=== PATIENT | female | born 1940 | race Caucasian/White ===

== ENCOUNTER 2024-05-22 18:57 | Emergency (ER) | payer MEDICARE, SELFPAY ==
[2024-05-22 19:16] VITALS: BP 134/64; PULSE 62; RESP 17; TEMP 36.3; O2SAT 99; BMI 21.4
--- NOTE | 2024-05-22 19:46 | DI.CT.S_ITS ---
PROCEDURE: CT ABDOMEN PELVIS W CON INDICATIONS: Eval for incarcerated inguinal hernia TECHNIQUE: After the administration of intravenous contrast, axial sections acquired from the lung bases to the pubic symphysis. Coronal and sagittal reformats were performed. For radiation dose reduction, the following was used: automated exposure control, adjustment of mA and/or kV according to patient size. COMPARISON: [facility], CT, CT HIP LEFT WITHOUT CONTRAST, 12/24/2023, 11:14. FINDINGS: Image quality: Diagnostic. Lower Chest: Prominent heart size. No pleural effusion. ABDOMEN: Liver: No solid mass. Gallbladder: Distended. Multiple small layering gallstones. Biliary ducts: No biliary dilation. Pancreas: No ductal dilation. Spleen: Size is within normal limits. Adrenal Glands: No adrenal nodules. Kidneys and Ureters: No convincing hydronephrosis. Left peripelvic cysts. No solid mass. No complex renal cystic lesion which requires follow up. Stomach and Bowel: The appendix is not identified. No diverticulitis. No small bowel obstruction. The stomach is within normal limits. Peritoneum: No ascites. No pneumoperitoneum. Ventral Wall: No significant ventral hernia. Abdominal Nodes: No retroperitoneal or mesenteric adenopathy by size criteria. Vessels: Aorta and inferior vena cava are normal in size. PELVIS: Pelvic Organs: Unremarkable. Bladder: No bladder wall thickening, accounting for underdistention. Pelvic Nodes: No enlarged lymph nodes. Miscellaneous: Small left inguinal hernia containing a small amount free fluid. However, this appears similar to November 2023. Tiny fat containing left inguinal hernia. Bones: No aggressive osseous abnormality. Multilevel DDD. Minimal height loss at T12. Left hip arthroplasty. IMPRESSION: 1. No small bowel obstruction. The appendix is not identified. No pneumoperitoneum. 2. Small inguinal hernias. The right inguinal hernia contains HC trace amount of free fluid. However, this appears similar to November 2023. 3. Gallbladder is distended. Multiple layering gallstones. No pericholecystic fluid is seen. Dictated by: Loco Dickinson M.D. on 05/22/2024 at 22:01 Approved by: Loco Dickinson M.D. on 05/22/2024 at 22:12
[2024-05-22 20:20] VITALS: BP 133/62; PULSE 59; O2SAT 99
[2024-05-22 20:20] LABS: Add Manual Diff / Slide Review NO; Basophils Absolute Auto 100 /uL (0-100); Basophils Percent Auto 0.9 % (0-2); Eosinophils Absolute Auto 400 /uL (0-450); Eosinophils Percent Auto 6.1 % (2-4); Hematocrit 36.9 % (36-46); Hemoglobin 12.3 g/dL (12.0-16.0); Lymphocytes Absolute Auto 1600 /uL (1100-4500); Lymphocytes Percent Auto 23.5 % (25-40); Mean Corpuscular HGB Conc 33.4 % (30-36); Mean Corpuscular Hemoglobin 32.6 PG (26-34); Mean Corpuscular Volume 97.6 fL (80-100); Monocytes Absolute Auto 700 /uL (0-900); Monocytes Percent Auto 10.1 % (3-14); Neutrophils Absolute Auto 4200 /uL (1500-7000); Neutrophils Percent Auto 59.4 % (50-75); Platelet Count 211 X10^3/uL (150-400); Red Blood Cell Count 3.79 X10^6/uL (4.0-5.2); Red Cell Distribution Width 14.1 % (11.6-14.8)
[2024-05-22 20:31] LABS: Alanine Aminotransferase 35 IU/L (<35); Albumin 4.1 g/dL (3.5-5.0); Albumin Globulin Ratio 1.5 (1.0-2.8); Alkaline Phosphatase 83 U/L (38-126); Aspartate Aminotransferase 43 IU/L (14-36); BUN Creatinine Ratio 42.9 (6-22); Bilirubin Total 0.3 mg/dL (0.2-1.3); Blood Urea Nitrogen 24 mg/dL (7-17); Carbon Dioxide 25 mmol/L (22-32); Chloride 108 mmol/L (98-107); Estimated Glomerular Filt Rate > 60 mL/min (>60); Globulin 2.8 g/dL (1.7-4.1); Glucose 89 mg/dL (80-110); HEMOLYSIS 39 (0-50); Lipase 88 U/L (23-300); Potassium 4.3 mmol/L (3.4-5.1); Sodium 137 mmol/L (137-145); Total Protein 6.9 g/dL (6.3-8.2)
--- NOTE | 2024-05-22 23:20 | ED.GENADULT ---
HPI - General Adult General Chief complaint: Urogenital-Female Stated complaint: sent by [facility] for hernia Time Seen by Provider: 05/22/24 20:56 Source: patient Mode of arrival: Ambulatory History of Present Illness HPI narrative: Patient was an 83-year-old female who was sent from the walk-in clinic for evaluation of discomfort in her right lower inguinal region. She has had occasional lumps in this area that have come and gone however over the past couple days lump has developed that has been painful and difficult to push back. At the time of my evaluation she states that she was actually feeling much better. She denies any upper abdominal pain. No vomiting. No change in bowel habits. No urinary symptoms. No fevers. Related Data Home Medications Medication Instructions Recorded Confirmed No Known Home Medications 05/22/24 05/22/24 Allergies Allergy/AdvReac Type Severity Reaction Status Date / Time lidocaine Allergy Anaphylaxis Verified 05/22/24 19:16 Review of Systems Review of Systems Narrative: See HPI Patient History Social History Smoking Status: Never smoker Smoking Status: Never smoker Exam Initial Vital Signs Initial Vital Signs: Vital Signs Temperature 97.4 F L 05/22/24 19:16 Pulse Rate 62 05/22/24 19:16 Respiratory Rate 17 05/22/24 19:16 Blood Pressure 134/64 05/22/24 19:16 Pulse Oximetry 99 05/22/24 19:16 Oxygen Delivery Method Room Air 05/22/24 19:16 Const General: cooperative and comfortable HENMT Head: normal to inspection GI Inspection: normal to inspection and non-distended Palpation: soft, No firm, No guarding, No rigid and tender (Mild tenderness right inguinal region) Other: Patient was no right upper quadrant tenderness. Neuro General: patient alert and patient awake Course Orders Ordered: ED Orders 05/22/24 19:46 CT abdomen pelvis w con Stat 05/22/24 20:11 Complete Blood Count AUTO DIFF Stat Comprehensive Metabolic Panel Stat Lipase Stat Vital Signs Vital signs: Vital Signs - 8 hr 05/22/24 23:35 Temperature 97.7 F Pulse Rate 61 Respiratory Rate 15 Blood Pressure 115/65 Pulse Oximetry 98 Oxygen Delivery Method Room Air Medical Decision Making Lab Data Lab results reviewed: Yes I reviewed the patient's lab results. 05/22/24 20:11 05/22/24 20:11 Labs: Lab Results 05/22/24 Range/Units 20:11 WBC 7.0 (4.5-11.0) X10^3/uL RBC 3.79 L (4.0-5.2) X10^6/uL Hgb 12.3 (12.0-16.0) g/dL Hct 36.9 (36-46) % MCV 97.6 (80-100) fL MCH 32.6 (26-34) PG MCHC 33.4 (30-36) % RDW 14.1 (11.6-14.8) % Plt Count 211 (150-400) X10^3/uL Neut % (Auto) 59.4 (50-75) % Lymph % (Auto) 23.5 L (25-40) % [place] % (Auto) 10.1 (3-14) % Eos % (Auto) 6.1 H (2-4) % Baso % (Auto) 0.9 (0-2) % Neut # (Auto) 4200 (2303-2850) /uL Lymph # (Auto) 1600 (9380-8991) /uL [place] # (Auto) 700 (0-900) /uL Eos # (Auto) 400 (0-450) /uL Baso # (Auto) 100 (0-100) /uL Sodium 137 (137-145) mmol/L Potassium 4.3 (3.4-5.1) mmol/L Chloride 108 H (98-107) mmol/L Carbon Dioxide 25 (22-32) mmol/L BUN 24 H (7-17) mg/dL Creatinine 0.56 (0.52-1.04) mg/dL Estimated GFR > 60 (>60) mL/min BUN/Creatinine Ratio 42.9 H (6-22) Glucose 89 (80-110) mg/dL Calcium 9.0 (8.4-10.2) mg/dL Total Bilirubin 0.3 (0.2-1.3) mg/dL AST 43 H (14-36) IU/L ALT 35 H (<35) IU/L Alkaline Phosphatase 83 (38-126) U/L Total Protein 6.9 (6.3-8.2) g/dL Albumin 4.1 (3.5-5.0) g/dL Globulin 2.8 (1.7-4.1) g/dL Albumin/Globulin Ratio 1.5 (1.0-2.8) Lipase 88 (23-300) U/L Imaging Data CT scan - abdomen/pelvis: Radiologist's Impression: PROCEDURE: CT ABDOMEN PELVIS W CON INDICATIONS: Eval for incarcerated inguinal hernia TECHNIQUE: After the administration of intravenous contrast, axial sections acquired from the lung bases to the pubic symphysis. Coronal and sagittal reformats were performed. For radiation dose reduction, the following was used: automated exposure control, adjustment of mA and/or kV according to patient size. COMPARISON: [facility], CT, CT HIP LEFT WITHOUT CONTRAST, 12/24/2023, 11:14. FINDINGS: Image quality: Diagnostic. Lower Chest: Prominent heart size. No pleural effusion. ABDOMEN: Liver: No solid mass. Gallbladder: Distended. Multiple small layering gallstones. Biliary ducts: No biliary dilation. Pancreas: No ductal dilation. Spleen: Size is within normal limits. Adrenal Glands: No adrenal nodules. Kidneys and Ureters: No convincing hydronephrosis. Left peripelvic cysts. No solid mass. No complex renal cystic lesion which requires follow up. Stomach and Bowel: The appendix is not identified. No diverticulitis. No small bowel obstruction. The stomach is within normal limits. Peritoneum: No ascites. No pneumoperitoneum. Ventral Wall: No significant ventral hernia. Abdominal Nodes: No retroperitoneal or mesenteric adenopathy by size criteria. Vessels: Aorta and inferior vena cava are normal in size. PELVIS: Pelvic Organs: Unremarkable. Bladder: No bladder wall thickening, accounting for underdistention. Pelvic Nodes: No enlarged lymph nodes. Miscellaneous: Small left inguinal hernia containing a small amount free fluid. However, this appears similar to November 2023. Tiny fat containing left inguinal hernia. Bones: No aggressive osseous abnormality. Multilevel DDD. Minimal height loss at T12. Left hip arthroplasty. IMPRESSION: 1. No small bowel obstruction. The appendix is not identified. No pneumoperitoneum. 2. Small inguinal hernias. The right inguinal hernia contains HC trace amount of free fluid. However, this appears similar to November 2023. 3. Gallbladder is distended. Multiple layering gallstones. No pericholecystic fluid is seen. MDM Narrative Medical decision making narrative: Patient has bilateral inguinal hernias which is consistent with her presenting symptoms. No signs of bowel obstruction. She reports that her symptoms have actually improved since arrival. She does have gallstones and distended gallbladder noted on the CT scan her she was no right upper quadrant tenderness. There was no indication for emergent surgical consultation. I did discuss this with her. I do recommend that she follow-up with general surgery as an outpatient to discuss surgical repair. Patient was given return precautions and follow-up instructions. She expressed understanding and agreement with plan. Discharge Plan Departure Patient Disposition: Home Clinical Impression: Inguinal hernia, Cholelithiasis Instructions: Groin Hernia -- Adult Activity Restrictions/Additional Instructions: I do recommend that you contact the general surgeon with the number provided below for a follow-up. Return to the emergency department for new or worsening symptoms. Prescriptions: No Action No Known Home Medications Referrals: Floyd Fuentes MD [Physician] - Miscellaneous,MD Anibal [Primary Care Provider] - Stand Alone Forms: Patient Portal/API/Survey
[2024-05-22 23:35] VITALS: BP 115/65; PULSE 61; RESP 15; TEMP 36.5; O2SAT 98
== END 2024-05-22 23:40 | disposition home or self-care (01) ==
PROVIDERS: Emergency Provider Emergency Medicine
DX: K40.20 Bilateral inguinal hernia, without obstruction or gangrene, not specified as recurrent (principal); K80.20 Calculus of gallbladder without cholecystitis without obstruction
CPT/HCPCS: 36415; 74177; 80053; 83690; 85025; 99284; Q9967

== ENCOUNTER 2024-07-06 06:06 | Day surgery (SDC) | payer MEDICARE, SELFPAY ==
[2024-06-30 09:39] VITALS: BMI 21.8
[2024-07-01 06:47] VITALS: BMI 21.8
[2024-07-06] MEDS: LACTATED RINGERS 1,000 ML 42 ML IV (07:01)
[2024-07-06 07:23] VITALS: BP 131/67; PULSE 62; RESP 16; TEMP 36.4; O2SAT 96; BMI 21.8
--- NOTE | 2024-07-06 07:44 | PM.PREOP ---
Pre-operative Note COVID-19 COVID-19 status: Not tested Interval Note History & Physical reviewed/Exam performed by Physician: Yes Changes to H&P: No ASA Class (for procedural sedation): III
[2024-07-06] MEDS: CEFAZOLIN 2 GM/100 ML PREMIX 100 ML IV (07:50)
--- NOTE | 2024-07-06 08:00 | SUR.OPER ---
Supine on padded OR bed, head on pillow, arms secured on padded arm boards at <90 degrees abduction, legs uncrossed, safety belt at thigh, tape over blanket over lower legs.
[2024-07-06] MEDS: BUPIVACAINE 0.5% W/ EPI (PF) 30 ML VIAL INJ (08:08)
--- NOTE | 2024-07-06 08:37 | PM.OP.1 ---
Operative Date/Time/Diagnoses Date of procedure: 07/06/24 Time of procedure: 08:37 Pre-op diagnosis: Right inguinal hernia Post-op diagnosis: same Procedure & Clinicians Procedure: Open right inguinal hernia repair with mesh Same procedure as scheduled: Yes Surgeon: Floyd Fuentes Director Of Government Sales: Mauri Kinney Anesthesia Type: General Operative Notes Procedure in detail: Preoperative antibiotic was administered. The patient was brought to the operating room and placed on the table in supine position general anesthesia was induced. The right groin was prepped and draped in the normal fashion and a time-out was performed. Roughly 10 mL of local anesthetic were injected into the skin and subcutaneous adipose tissue over the right groin. A 5 cm incision was made over the right inguinal canal. Dissection was carried down through the subcutaneous adipose tissue. We exposed the external oblique aponeurosis in the direction of the fibers. Additional local was injected deep to the aponeurosis. A 15 blade scalpel was used to dorie the external oblique aponeurosis. Metzenbaum scissors were used to carefully open the aponeurosis in the direction of the fibers taking care not to injure the underlying ilioinguinal nerve. We completely exposed the inguinal canal. The round ligament and hernia sac were dissected free from the inguinal ligament and floor of the inguinal canal and the external oblique aponeurosis was dissected off of the internal oblique taking care not to injure the hypogastric nerve. There appeared to be an indirect hernia containing fat which was dissected out of the pubis and reduced back through the internal ring. We then trimmed a 2 in x 4 in rectangle of polypropylene mesh and fit it against the floor of the inguinal canal. The mesh was secured with multiple interrupted 3-0 Prolene sutures to the pubic tubercle and shelving edge of the inguinal ligament as well as to the conjoint tendon medially. We secured the lateral corner of the mesh to the inguinal ligament with additional sutures. We injected some more local into the fatty tissue in the inguinal canal. We closed the external oblique fascia with a running 3-0 Vicryl suture. Skin was closed with interrupted 3-0 Vicryl dermal sutures and a running 4 Monocryl subcuticular stitch. EBL 5 mL The patient was awakened and brought to recovery room. EBL: 10 mL Mauri SÁNCHEZ provided assistance with exposure, retraction and closure of incisions. Post-operative Condition: stable Disposition: PACU
[2024-07-06 08:43] VITALS: BP 122/57; PULSE 98; RESP 14; TEMP 36.3; O2SAT 98
[2024-07-06 08:48] VITALS: BP 117/61; PULSE 68; RESP 12; O2SAT 97
[2024-07-06 08:53] VITALS: BP 115/59; PULSE 71; RESP 12; O2SAT 98
[2024-07-06] MEDS: ACETAMINOPHEN IV 1,000 MG/100 ML VIAL 400 MG IV (09:03)
[2024-07-06 09:08] VITALS: BP 115/59; PULSE 66; RESP 16; TEMP 36.3; O2SAT 99
--- NOTE | 2024-07-06 16:59 | SUR.PHASEII ---
Pt called c/o SOB. Peak flow 248, baseline 250. SpO2 98%, HR 80, BP WNL. Pt asking if she can take albuterol. Chart reviewed; this RN instructed pt to take albuterol dose as prescribed and recheck vital signs in 30min. If VS stable but pt is still c/o SOB, instructed to be evaluated further in ED.
== END 2024-07-06 09:53 | disposition home or self-care (01) ==
PROVIDERS: PCP Family Medicine; Referring Provider Surgery; Visit Provider Surgery
PROC: (CPT 49505; principal; 2024-07-06 07:45)
DX: K40.90 Unilateral inguinal hernia, without obstruction or gangrene, not specified as recurrent (principal); I51.7 Cardiomegaly
CPT/HCPCS: 49505; C1781; J0131; J0690; J1100; J2405; J2704; J3010